=== PATIENT | male | born 1980 | race Caucasian/White ===

== ENCOUNTER 2017-01-25 21:32 | Emergency (ER) | payer OTHER ==
[~2017-01-25] VITALS: Ht 180.3 cm; Wt 106.8 kg
[~2017-01-25 21:32] MED LIST: EPIN0.3P2; RIVA15TA PO; RIVA20TA PO
[2017-01-25 21:44] VITALS: BP 170/96; PULSE 82; RESP 20; O2SAT 97
[2017-01-25] MEDS ORDERED: OMEP20TA86 PO (21:50)
--- NOTE | 2017-01-25 21:51 | ED.REPORT ---
HPI-Dyspnea / Wheezing Date of Service Jan 25, 2017 ED Provider: Tomer Wade MD Patient is a 36 year old male on Xarelto with a history of prior pulmonary embolism 2x following left Achilles tendon repair and hypertension who presents to the ED complaining of progressive chest pain and shortness of breath that began 2 weeks ago. The patient states that he has chest discomfort and shortness of breath at baseline due to his prior pulmonary embolisms. However the patient was evaluated by his PCP Dr. Asher today, who told him to present to the ED for a CT Angio of his chest. The patient sustained a ruptured Achilles tendon in November 2015, with subsequent surgical repair. His first PE was in January 2016, which revealed a bilateral pulmonary embolism with pulmonary infarction on left side. He was started on Xarelto on discharge, which was halted in May 2016. However he developed a second small subsegmental right upper lobe pulmonary embolism in August of 2016 and has been on 20 mg Xarelto since that time. He reports ongoing left lower extremity pain since his surgery , which has not increased in severity. However he states that his leg feels "tighter" than usual. The patient is on his feet all day, working as a publications sales representative. He admits that he does not get as much exercise as he should, but is underlying PE limits his exercise ability. He denies underlying blood clotting disorder. Nursing Notes Stated Complaint: BREATHING,CHEST/BACK PAIN Chief Complaint: Chest Pain Nursing Notes Reviewed: Yes Allergies: Coded Allergies: venom-honey bee (Unverified Allergy, Unknown, 01/25/17) FROM UNCODED ALLERGY Uncoded Allergies: BEES/ GROUND HORNETS (Allergy, Intermediate, 12/20/15) HYPOTENSION Scheduled Omeprazole (Omeprazole) 20 Mg Tablet.dr 20 MG PO BID Rivaroxaban (Xarelto) 20 Mg Tablet 20 MG PO DAILY start taking 20mg daily in 22 days from now after finishing the 21 day course of 15mg twice daily Miscellaneous Medications Epinephrine (Epipen 2-Jm) 0.3 Mg/0.3 Ml Auto.injct General Time Seen by MD: 21:49 Chief Complaint Chest pain, Shortness of breath Hx Obtained From: Patient Arrived By: Walk-in Sudden in Onset?: No Onset Occurred: More than a week ago... (2 weeks) Symptom Duration: Since onset Location: : Chest left: Chest right Quality: Painful Severity: Current: Moderate Severity: Maximum: Moderate Recent Healthcare: Recent doctor visit Similar Sx Previous: Yes Past Medical History Past Medical History Pulmonary embolism 2x, on Xarelto. PE in January 2016 (bilateral pulmonary embolism with pulmonary infarction on left side) and PE in August 2016 (Acute small subsegmental right upper lobe), following achilles tendon repair (LLE) in November 2015. Hepatic steatosis Reports: Hyperlipidemia, Hypertension Past Surgical History achilles tendon repair Smoking History Never Smoker Social History Alcohol Use: Denies alcohol use Drug Use: Denies drug use Other Social History: Good social support, , Local resident Ambulatory Status Independent Review of Systems Respiratory: Reports: Shortness of breath, Denies: Non-productive cough Cardiovascular: Reports: Chest pain, Denies: Palpitations Musculoskeletal: Reports: Extremity pain, Extremity swelling Complete sys rev & neg: except as marked. Physical Exam Initial Vital Signs Vital Signs (First) Date Time Temp Pulse Resp B/P Pulse Ox O2 Delivery O2 Flow Rate FiO2 01/25/17 21:44 36.6 82 20 170/96 97 Room Air Initial VS: Reviewed, Vital signs abnormal Head / Eyes: Atraumatic, Normocephalic, PERRL ENT: Conjunctiva normal, No scleral icterus Abdomen / GI: Soft, Non-tender Skin: Warm, Dry, No cyanosis Neurologic: Alert, Oriented, Nonfocal Psychiatric: Mood/affect normal, Behavior normal, Normal thought content General/Constitutional: Awake, Alert, No acute distress Behavior: Positive: Anxious Neck: Supple, Full range of motion Respiratory / Chest: Breath sounds NL, Breath sounds = bilat, No respiratory distress, No rales, No rhonchi, No wheezing Cardiovascular: Heart rate NL, Regular rhythm, Heart sounds NL, No murmurs Lower Extremity / Pelvis / MS: No swelling, Non-tender, No edema bilateral lower extremities are the same size Upper Extremity / MS: No swelling, No edema Interpretation & Diagnostics Lab Results Interpretation Result Diagram: 01/25/17215701/25/17 215 Test 01/25/17 21:58 White Blood Count 7.1th/mm3 (3.8-10.1) Red Blood Count 5.42mil/mm3 (4.40-5.80) Hemoglobin 15.3g/dL (13.8-17.2) Hematocrit 44.2% (41.0-50.0) Mean Corpuscular Volume 81.5fL (81-100) Mean Corpuscular Hemoglobin 28.2pg (27.0-35.0) Mean Corpuscular Hemoglobin Concent 34.6% (32.0-37.0) Red Cell Distribution Width 12.9% (12.3-15.4) Platelet Count 150bil/L (150-400) Neutrophils (%) (Auto) 64.8% (40-74) Lymphocytes (%) (Auto) 23.4% (14-46) Monocytes (%) (Auto) 10.5% (4-12) Eosinophils (%) (Auto) 0.7% (0-5) Basophils (%) (Auto) 0.3% (0-3) Sodium Level 138mEq/L (134-144) Potassium Level 3.6mEq/L (3.5-5.2) Chloride Level 98mEq/L (97-108) Carbon Dioxide Level 23mmol/L (18-29) Blood Urea Nitrogen 13mg/dL (6-20) Creatinine 0.84mg/dL (0.76-1.27) Estimat Glomerular Filtration Rate 111mL/min (>59) Glucose Level 111mg/dL (60-99) Calcium Level 9.7mg/dL (8.5-10.1) Magnesium Level 2.0mg/dL (1.6-2.6) Total Bilirubin 0.5mg/dL (0.0-1.2) Aspartate Amino Transf (AST/SGOT) 31U/L (0-50) Alanine Aminotransferase (ALT/SGPT) 49U/L (0-44) Alkaline Phosphatase 46U/L (25-150) Troponin T < 0.010ug/L (0.0-0.011) Total Protein 7.9g/dL (6.4-8.4) Albumin 4.7g/dL (3.4-5.0) Hold Cherry Top Tube Received (Received) Lab values outside NL range: no clinical significance. ECG Interpretation ECG Interpretation: Sinus rhythm, Rate 73 Time: 21:47 Interpreted by: ED physician Normal ECG Interpretation: No acute ischemic changes CT Chest Interpretation CONCLUSION: No evidence of pulmonary embolism or dissection Radiologist: Moses Macario MD 01/25/2017 - 11:43:11 PM PDT Study type: CT pulm angiogram Interpretation / Wet Read by: Interpret - Radiologist Re-Eval/Medical Decision Med Decision/Clinical Course 36-year-old male with a history of PE presents with some chest pain and shortness of breath, suspicious for recurrent PE. He is on Xarelto and has been taking it as prescribed. His troponin is negative. His EKG is negative. His CT chest angiogram PE protocol shows no evidence of recurrent PE. Source of Hx: Old records Re-Evaluation/Progress : Time of Eval: 23:57 Patient Status: Condition improved Re-Evaluation/Progress Note: Rechecked the patient. The CT scan of his chest was negative. Discussed his lab results. Patient understands and agrees with the plan to be discharged home. Discharge instructions and follow-up discussed. All questions were addressed. Return to the ED warnings given. Counseled Regarding: Diagnosis, Lab results, Need for follow-up, When/why to return to ED Discharge & Departure Impression: Primary Impression: Chest pain with low risk for cardiac etiology Additional Impression: History of pulmonary embolism Disposition: Home Discharge Condition All VS Reviewed: Yes Condition: Stable Patient Instructions: Chest Pain (ED) Additional Instructions: No evidence on CT scan of blood clots or any other significant lung disease. EKG and heart troponin test are both normal. I do not see any evidence of serious illness at this time. You can use Tylenol for the pain do not use anti- inflammatory medicines like Advil or Aleve. Follow-up with your regular doctor as needed for persistent symptoms. Referrals: Gurvinder Asher MD (PCP) Fay Attestation Portions of this note were transcribed by Niurka Villagran. I, Dr. Wade personally performed the history, physical exam and medical decision-making; I reviewed and confirmed the accuracy of the information in the transcribed note. Signed by: Fay Catherine, 01/26/2017 0204 copies to: Gurvinder Asher MD, Howard L MD Jan 25, 2017 21:51 Niurka Villagran Jan 25, 2017 21:59
[2017-01-25 22:08] LABS: BASOPHILS % (AUTO) 0.3 % (0-3); EOSINOPHILS % (AUTO) 0.7 % (0-5); MONOCYTES % (AUTO) 10.5 % (4-12); Mean Corpuscular Hemoglobin 28.2 pg (27.0-35.0); Mean Corpuscular Volume 81.5 fL (81-100); NEUTROPHILS % (AUTO) 64.8 % (40-74); Platelet Count 150 bil/L (150-400)
[2017-01-25 22:44] LABS: TROPONIN T < 0.010 ug/L (0.0-0.011)
[2017-01-25 22:57] VITALS: BP 149/87; PULSE 75; RESP 24; O2SAT 93
[2017-01-26 00:13] VITALS: BP 153/98; PULSE 74; RESP 20; O2SAT 94
--- NOTE | 2017-01-26 13:44 | DRSVH ---
PROCEDURE: CT ANGIO CHEST PULMONARY EMBOLISM ([id number]) INDICATIONS: dyspnea, possible recurrent PE TECHNIQUE: After the administration of intravenous contrast, 2 mm thick sections acquired from the pulmonary api angela to the posterior costophrenic angles. 3-dimensional maximum intensity projection (MIP) coronal a nd sagittal reformats were then acquired through the thorax. For radiation dose reduction, the follo wing was used: automated exposure control, adjustment of mA and/or kV according to patient size. COMPARISON: [facility], CT, CT ANGIO CHEST PE, 09/21/2016, 21:43. FINDINGS: Image quality: Excellent. Pulmonary arteries: Pulmonary arteries are normal in size, and demonstrate no intraluminal filling d efects to suggest central pulmonary embolism. Lungs and pleura: Lungs are clear. No pleural effusions or pneumothorax. Central and peripheral ai rways are patent. Mediastinum: Heart size is normal, without pericardial effusion. No mediastinal or hilar adenopathy . Thoracic aorta is normal in caliber and enhancement. Esophagus is normal in caliber, without hiat al hernia. Bones and chest wall: No suspicious bony lesions. Ribs and thoracic spine appear intact throughout. Thyroid gland is unremarkable. No axillary or supraclavicular adenopathy. Abdomen: Visualized upper abdominal solid organs appear normal in the early arterial phase of enhanc ement. IMPRESSION: 1. No evidence of pulmonary embolism. Lungs are clear. Dictated by: Joi Coronado M.D. on 01/26/2017 at 13:39 Approved by: Joi Coronado M.D. on 01/26/2017 at 13:43
== END 2017-01-26 00:14 | disposition home or self-care (01) ==
LOC: SED 21:32
DX: R07.89 Other chest pain (principal); I10 Essential (primary) hypertension; E78.5 Hyperlipidemia, unspecified; Z87.09 Personal history of other diseases of the respiratory system; Z91.030 Bee allergy status
CPT/HCPCS: 36415; 71275; 80053; 83735; 84484; 85025; 93005; 99285; Q9967